=== PATIENT | male | born 1960 | race Hispanic/Latino ===

== ENCOUNTER 2024-09-20 14:36 | Emergency (ER) | payer OTHER ==
[~2024-09-20] VITALS: Ht 162.6 cm; Wt 93.0 kg
[2024-09-20 16:19] VITALS: PULSE 71; RESP 16; TEMP 98.1
[2024-09-20] MEDS ORDERED: HYDROCODON-ACE1 EA11 PO (21:32)
[2024-09-20] MEDS: HYDROCODONE/APAP 5MG-325MG TAB PO ONE (21:44)
[2024-09-20 21:59] VITALS: BP 130/84; PULSE 75; RESP 15; TEMP 98; O2SAT 100
== END 2024-09-20 22:20 | disposition home or self-care (01) ==
LOC: ER 19:55
DX: M25.522 Pain in left elbow (principal); M84.422A Pathological fracture, left humerus, initial encounter for fracture; C79.51 Secondary malignant neoplasm of bone; I10 Essential (primary) hypertension; G40.909 Epilepsy, unspecified, not intractable, without status epilepticus
CPT/HCPCS: 99284